=== PATIENT | male | born 1985 | race Hispanic/Latino ===

== ENCOUNTER 2018-07-19 10:37 | Day surgery (SDC) | payer MEDICARE ==
[2018-07-19] MEDS ORDERED: Bupivacaine HCl 0.25%/Epi 0.0005/PF 10 ML VIAL FS ONE (10:41)
[2018-07-19] MEDS ORDERED: CEFAZOLIN 2 GM/50 ML BAG ONE (10:53)
[2018-07-19 11:15] LABS: #Basophils 0.1 thou/uL (0.0-0.2); #Eosinphils 0.2 thou/uL (0.0-0.7); #Lymphocytes 3.3 thou/uL (1.20-3.40); #Monocytes 0.9 thou/uL (0.11-0.59); #Neutrophils 5.8 thou/uL (1.40-6.50); %Basophils 0.7 % (0.0-1.0); %Eosinophils 1.9 % (0.0-10.0); %Monocytes 8.6 % (0.0-10.0); %Neutrophils 56.8 % (42.0-75.0); Hemoglobin 17.3 g/dL (14.0-18.0); Mean Corpuscular HGB CONC 36.1 g/dL (32.0-36.0); Mean Corpuscular Hemoglobin 32.6 pg (27.0-31.0); Mean Corpuscular Volume 90.3 fL (78.0-98.0); Mean Platelet Volume 9.1 fL (7.4-10.4); Platelet Count 195 thou/uL (130-400); RBC Distribution Width 10.9 % (11.5-14.5); White Blood Cell (WBC) Count 10.2 thou/uL (4.8-10.8)
[2018-07-19] MEDS ORDERED: Midazolam HCl 2 mg/2 ml Vial ONE (11:22)
[2018-07-19] MEDS ORDERED: Fentanyl 100 MCG/2 ML VIAL ONE (11:22)
[2018-07-19 11:39] LABS: ALT (SGPT) 36 U/L (8-55); AST (SGOT) 20 U/L (5-34); Albumin 4.7 g/dL (3.5-5.0); Alkaline Phosphatase 95 U/L (40-150); Anion Gap 19 mmol/L (10-20); BUN (Urea Nitrogen) 12 mg/dL (8.9-20.6); Bilirubin, Total 0.6 mg/dL (0.2-1.2); Calc. Creatinine Clearance 0 mL/min (70-130); Calcium 9.7 mg/dL (7.8-10.44); Carbon Dioxide 24 mmol/L (22-29); Chloride 96 mmol/L (98-107); Estimated GFR-MDRD 88; Globulin 3.7 g/dL (2.4-3.5); Glucose 280 mg/dL (70-105); Potassium 3.7 mmol/L (3.5-5.1); Protein, Total 8.4 g/dL (6.0-8.3); Sodium 135 mmol/L (136-145)
[2018-07-19] MEDS ORDERED: Bacitracin Zinc Ointment 30 gm TUBE ONE (12:05)
--- NOTE | 2018-07-19 13:41 | OP ---
DATE OF PROCEDURE: 07/19/2018 PREOPERATIVE DIAGNOSIS: Right groin abscess. PROCEDURE PERFORMED: Incision and drainage of right groin abscess. INDICATIONS: A 33-year-old diabetic male developed painful swelling in his right groin. FINDINGS: About a 6 x 6 cm abscess cavity containing foul-smelling purulent fluid. DESCRIPTION OF PROCEDURE: After informed consent was obtained, the patient was taken to the operating room, given general mask anesthesia, placed in supine position. His groin was prepped and draped in usual fashion. An elliptical incision was performed releasing foul-smelling purulent fluid. This was sent for culture and sensitivity, that skin wedge was excised and the cavity was irrigated. The loculations broke up digitally. Hemostasis was achieved with electrocautery as well as a couple of [id number] of 3-0 Vicryl. Again, the wound was thoroughly irrigated and packed open with Betadine gauze covered by dry gauze. The patient tolerated the procedure well, transferred to Recovery in good condition. Sponge and needle count verified correct x2. Job ID: [id number]
[2018-07-19] MEDS ORDERED: Ketorolac Tromethamine 30 MG/ML VIAL ONE (16:28)
[2018-07-19] MEDS ORDERED: Lidocaine 1% PF 5 ML VIAL ONE (16:28)
[2018-07-19] MEDS ORDERED: PROPOFOL 200 MG/20 ML VIAL ONE (16:28)
[2018-07-19] MEDS ORDERED: Ondansetron PF 4 MG/2 ML Vial ONE (16:28)
[2018-07-19] MEDS ORDERED: Dexamethasone 20 MG/5 ML VIAL ONE (16:28)
== END 2018-07-19 14:25 | disposition home or self-care (01) ==
LOC: SDC 10:37
PROVIDERS: ATTEND Surgery
PROC: 0J9L0ZZ Drainage of Right Upper Leg Subcutaneous Tissue and Fascia, Open Approach (ICD-10-PCS; principal; 2018-07-19)
DX: L02.214 Cutaneous abscess of groin (principal); E11.9 Type 2 diabetes mellitus without complications; F17.210 Nicotine dependence, cigarettes, uncomplicated; E78.2 Mixed hyperlipidemia
CPT/HCPCS: 36415; 80053; 85025; 87070; 87205; J1100; J1885; J2001; J2250; J2405; J2704; J3010